=== PATIENT | female | born 1970 | race Two or more races ===

== ENCOUNTER 2016-11-22 17:34 | Emergency (ER) | payer SELFPAY ==
[~2016-11-22] VITALS: Ht 160 cm; Wt 54.4 kg
[2016-11-22 17:52] VITALS: BP 115/55
[2016-11-22 19:07] LABS: OBC FLU VALID
[2016-11-22] MEDS ORDERED: PROAIR RESPICL90 MCG IH (20:03)
[2016-11-22] MEDS ORDERED: PRED50TA PO (20:03)
[2016-11-22] MEDS ORDERED: BENZ100C PO (20:03)
--- NOTE | 2016-11-22 20:03 | PHYS DOC ---
Past Medical History Past Medical History: GERD, Other Additional Past Medical Histor: "Idiopathic thrombocytopenic prurpura" Past Surgical History: Cholecystectomy, Oophorectomy, Splenectomy, Other Additional Past Surgical Histo: L ovary Additional Information: 2 CIGARETTES A DAY Alcohol Use: None Drug Use: None Adult General Chief Complaint Chief Complaint: COUGH HPI HPI Patient is a 46 year old female with history of acid reflex who presents today with a productive cough and body aches. Patient states she's had a cough for 1 week and body aches for 2 days. Patient denies any fever. Patient states she would like a note for work. She states she is a smoker. Review of Systems Review of Systems Constitutional: body aches Eyes: Denies change in visual acuity, redness, or eye pain [] HENT: Denies nasal congestion or sore throat [] Respiratory:cough Cardiovascular: No additional information not addressed in HPI [] GI: Denies abdominal pain, nausea, vomiting, bloody stools or diarrhea [] : Denies dysuria or hematuria [] Musculoskeletal: Denies back pain or joint pain [] Integument: Denies rash or skin lesions [] Neurologic: Denies headache, focal weakness or sensory changes [] Endocrine: Denies polyuria or polydipsia [] Allergies Allergies Allergies Coded Allergies Type Severity Reaction Last Updated Verified No Known Drug Allergies 08/31/14 No Physical Exam Physical Exam Constitutional: Well developed, well nourished, no acute distress, non-toxic appearance. [] HENT: Normocephalic, atraumatic, bilateral external ears normal, oropharynx moist, no oral exudates, nose normal. [] Eyes: PERRLA, EOMI, conjunctiva normal, no discharge. [] Neck: Normal range of motion, no tenderness, supple, no stridor. [] Cardiovascular:Heart rate regular rhythm, no murmur [] Lungs & Thorax: Bilateral breath sounds clear to auscultation [] Abdomen: Bowel sounds normal, soft, no tenderness, no masses, no pulsatile masses. [] Skin: Warm, dry, no erythema, no rash. [] Back: No tenderness, no CVA tenderness. [] Extremities: No tenderness, no cyanosis, no clubbing, ROM intact, no edema. [] Neurologic: Alert and oriented X 3, normal motor function, normal sensory function, no focal deficits noted. [] Psychologic: Affect normal, judgement normal, mood normal. [] Current Patient Data Vital Signs Vital Signs Date Time Temp Pulse Resp B/P Pulse Ox O2 Delivery O2 Flow Rate FiO2 11/22/16 17:52 98.2 75 20 115/55 100 Room Air 98.2 Lab Values Laboratory Tests Test 11/22/16 18:42 Influenza Type A Antigen Negative (NEGATIVE) Influenza Type B Antigen Negative (NEGATIVE) EKG EKG [] Radiology/Procedures Radiology/Procedures [] Course & Med Decision Making Course & Med Decision Making Pertinent Labs and Imaging studies reviewed. (See chart for details) This is a 46 year old female patient with history of smoking who presents today with a productive cough and body aches. Chest x-ray interpreted by Dr. Huang is negative for any acute findings. Negative for influenza. Patient's symptoms are consistent with viral bronchitis. She was encouraged to consider smoking cessation. She was provided prescription for albuterol and Tessalon Perles and prednisone. She is to follow-up with her own PCP. She was provided return precautions and discharged in stable condition. Dragon Disclaimer Dragon Disclaimer This electronic medical record was generated, in whole or in part, using a voice recognition dictation system. Departure Departure Impression: Primary Impression: Acute bronchitis Additional Impressions: Body aches Smoking addiction Disposition: 01 HOME, SELF-CARE Condition: STABLE Referrals: NO PCP (PCP) Follow-up with your own doctor in one week Patient Instructions: Acute Bronchitis, [id number] Additional Instructions: You were seen with symptoms consistent with acute viral bronchitis. Consider smoking cessation. Follow-up with your doctor in one week. Come back to the ED if symptoms worsen. Scripts Prednisone 50 Mg Tablet1 Tab PO DAILY #5 TAB Prov:BRONSON LOVE APRN 11/22/16 Benzonatate (Tessalon Perle)100 Mg Capsule1 Cap PO TID #21 CAP Prov:BRONSON LOVE APRN 11/22/16 Albuterol Sulfate (Proair Respiclick)90 Mcg Aer.pow.ba1 Puff IH PRN Q6HRS PRN SHORTNESS OF BREATH #1 INHALER Prov:BRONSON LOVE ADMINISTRATIVE OFFICE SPECIALIST 11/22/16 Problem Qualifiers Primary Impression: Acute bronchitis Bronchitis organism: unspecified organism Qualified Code: J20.9 - Acute bronchitis, unspecified BRONSON LOVE APRN Nov 22, 2016 20:03
--- NOTE | 2016-11-23 08:39 | RAD ---
Indication flulike symptoms for 2 days. PA and lateral views of the chest were obtained. Comparison is made to a study 08/14/2012. There are suspect background changes of emphysema or fibrosis. There is mild hyperexpansion. The heart and pulmonary vessels appear normal. There is no consolidated pneumonia significant pleural fluid collection or pneumothorax. IMPRESSION: No acute or focal process is seen in the chest
== END 2016-11-22 20:18 | disposition home or self-care (01) ==
LOC: ER 17:34
DX: J20.9 Acute bronchitis, unspecified (principal); M79.1 Myalgia; K21.9 Gastro-esophageal reflux disease without esophagitis; F17.210 Nicotine dependence, cigarettes, uncomplicated; Z90.81 Acquired absence of spleen; Z90.49 Acquired absence of other specified parts of digestive tract; Z90.721 Acquired absence of ovaries, unilateral
CPT/HCPCS: 71020; 87804; 99285-25

== ENCOUNTER → 2018-04-21 | Outpatient (CLI) | payer BC ==
[~2018-04-21] MED LIST: BENZ100C PO; PRED50TA PO; PROAIR RESPICL90 MCG IH
--- NOTE | 2018-04-21 12:51 | RAD ---
MR of the right foot HISTORY: Medial sesamoid pain for 3 or 4 months, avascular necrosis. TECHNIQUE: Routine multiplanar sequences are obtained. FINDINGS: The mammary osteoarthritis at the articulation of the first metatarsal head with the hallux sesamoids. The sesamoids are subluxed laterally. These sesamoids demonstrate intact marrow signal without edema or sclerosis. Bifid morphology of the medial hallux sesamoid. Degenerative changes at the first MTP joint. Hallux valgus. No bone marrow edema or acute fracture. No abnormal soft tissue fluid collection or edema. The visualized tendons are intact. Lisfranc ligament complex is intact as is tarsometatarsal alignment. IMPRESSION: 1. Degenerative changes at the first MTP joint with hallux valgus. 2. Lateral subluxation of the hallux sesamoids with degenerative change. No evidence of acute sesamoiditis. Bifid morphology of the medial hallux sesamoid likely developmental. No other intrinsic sesamoid bone pathology. Electronically signed by: Moncho Arriaza MD (04/21/2018 12:47 PM) [facility]
== END | disposition home or self-care (01) ==
LOC: MRI 10:18
PROVIDERS: ATTEND Podiatrist Foot & Ankle Surgery
DX: S93.311A Subluxation of tarsal joint of right foot, initial encounter (principal); M19.071 Primary osteoarthritis, right ankle and foot; M20.11 Hallux valgus (acquired), right foot; K21.9 Gastro-esophageal reflux disease without esophagitis; Z90.49 Acquired absence of other specified parts of digestive tract; Z90.81 Acquired absence of spleen; Z90.721 Acquired absence of ovaries, unilateral; Z87.891 Personal history of nicotine dependence; X58.XXXA Exposure to other specified factors, initial encounter; Y93.89 Activity, other specified; Y92.89 Other specified places as the place of occurrence of the external cause; Y99.8 Other external cause status
CPT/HCPCS: 73718

== ENCOUNTER → 2018-07-08 | Outpatient (CLI) | payer BC ==
--- NOTE | 2018-07-08 10:31 | RAD ---
Examination: CT maxillofacial without contrast HISTORY: History of chronic sinusitis COMPARISON: None available technique: Axial CT images of the maxillofacial bones were performed without contrast. Coronal and sagittal reformats are performed Exposure: One or more of the following individualized dose reduction techniques were utilized for this examination: 1. Automated exposure control 2. Adjustment of the mA and/or kV according to patient size 3. Use of iterative reconstruction technique FINDINGS: No opacification or air-fluid levels are identified within the paranasal sinuses. Mild rightward deviation of nasal septum.. No bony abnormality. The bilateral orbital globes appear intact. Retro-orbital fat is maintained. The mastoid air cells are clear IMPRESSION: No evidence of sinus disease. Electronically signed by: Nickolas Rivas MD (07/08/2018 10:28 AM) [place] [id number]
== END | disposition home or self-care (01) ==
LOC: CT 13:50
PROVIDERS: ATTEND Family Medicine
DX: J32.0 Chronic maxillary sinusitis (principal); J34.2 Deviated nasal septum
CPT/HCPCS: 70486

== ENCOUNTER → 2018-07-29 | Day surgery (SDC) | payer BC ==
[~2018-07-29] MED LIST changes: +IV RINGERS,LACTATED 1000ML 1,000 ML IV SCH; +PROPOFOL 20 ML IV ONE
[2018-07-29 08:17] VITALS: BP 99/61
== END | disposition home or self-care (01) ==
LOC: ENDOS 06:29
PROVIDERS: ATTEND Internal Medicine Gastroenterology
DX: K64.0 First degree hemorrhoids (principal); I10 Essential (primary) hypertension; Z90.49 Acquired absence of other specified parts of digestive tract; Z90.721 Acquired absence of ovaries, unilateral; Z90.81 Acquired absence of spleen; M79.7 Fibromyalgia; Z79.2 Long term (current) use of antibiotics; Z80.0 Family history of malignant neoplasm of digestive organs; Z83.3 Family history of diabetes mellitus; F17.210 Nicotine dependence, cigarettes, uncomplicated; Z72.89 Other problems related to lifestyle
CPT/HCPCS: 45378; J2704

== ENCOUNTER → 2019-01-08 | Outpatient (CLI) | payer BC ==
[2018-07-29 08:17] VITALS: BP 99/61
[~2019-01-08] MED LIST changes: -IV RINGERS,LACTATED 1000ML 1,000 ML IV SCH; -PROPOFOL 20 ML IV ONE
--- NOTE | 2019-01-08 11:00 | RAD ---
Small bowel series, 01/08/2019: History: Abdominal pain The preliminary abdominal image demonstrates a nonspecific gas pattern. There is no evidence of organomegaly. Serial digital images were obtained following oral ingestion of liquid barium. 0.4 minutes of fluoroscopy time was also utilized with 3 fluoroscopic spot images recorded. The small bowel loops are of normal caliber with no evidence of thickening of their folds. There is normal transit of the barium through the small bowel into the colon. The terminal ileum is unremarkable. IMPRESSION: No significant small bowel abnormality is detected.
== END | disposition home or self-care (01) ==
LOC: RAD 08:59
PROVIDERS: ATTEND Internal Medicine Gastroenterology
DX: R10.9 Unspecified abdominal pain (principal); R19.7 Diarrhea, unspecified
CPT/HCPCS: 74250

== ENCOUNTER 2019-06-28 11:57 | Inpatient (IN) | payer BC ==
[~2019-06-28] VITALS: Ht 154.9 cm; Wt 53.1 kg
[2019-06-28] MEDS ORDERED: IV NORMAL SALINE 1000ML BAG 1,000 ML IV SCH (13:21)
[2019-06-28] MEDS ORDERED: cefTRIAXone IV Push 1 GM VIAL. IVP ONE (13:30)
[2019-06-28] MEDS ORDERED: VANCOMYCIN 1GM IVPB FOR OMNI 250 ML IV ONE (13:30)
--- NOTE | 2019-06-28 13:32 | PHYS DOC ---
Past Medical History Past Medical History: Arthritis, Fibromyalgia, GERD, Other Additional Past Medical Histor: "Idiopathic thrombocytopenic prurpura", IBS, COLITIS Past Surgical History: Cholecystectomy, Oophorectomy, Splenectomy, Other Additional Past Surgical Histo: L ovary Alcohol Use: None Drug Use: None Adult General Chief Complaint Chief Complaint: cellulitis HPI HPI Patient is a 49 year old female with history of ITP and colitis who presents with complaining of facial cellulitis. Patient states she has had nose edema and erythema and pain for 4 days and seen at [facility] emergency room and treated with without improvement of her condition and the size of nose getting almost the size of her usual. Patient states she usually needs IV antibiotic treatment with infection because of platelet count of 60,000 and her primary care physician suggested she is coming to ER for hospitalization. She denies fever, dizziness, focal neuro deficit, nasal bleeding, nausea and vomiting. Patient states she was treated for colitis on June 07 with improvement of her sympt oms. Review of Systems Review of Systems Constitutional: Denies fever or chills [] Eyes: Denies change in visual acuity, redness, or eye pain [] HENT: Denies nasal congestion or sore throat [] Respiratory: Denies cough or shortness of breath [] Cardiovascular: No additional information not addressed in HPI [] GI: Denies abdominal pain, nausea, vomiting, bloody stools or diarrhea [] : Denies dysuria or hematuria [] Musculoskeletal: Denies back pain or joint pain [] Integument: Denies rash, reports skin lesions [] Neurologic: Denies headache, focal weakness or sensory changes [] Endocrine: Denies polyuria or polydipsia [] All other systems were reviewed and found to be within normal limits, except as documented in this note. Current Medications Current Medications Current Medications Medications (Trade) Dose Ordered Sig/Troy Start Time Stop Time Status Last Admin Dose Admin Sodium Chloride 1,000 ml @ 1,000 mls/hr Q1H 06/28/19 13:21 06/28/19 14:20 DC 06/28/19 14:16 1,000 MLS/HR Allergies Allergies Allergies Coded Allergies Type Severity Reaction Last Updated Verified No Known Drug Allergies 08/31/14 No Physical Exam Physical Exam Constitutional: Well developed, well nourished, mild distress, non-toxic appearance. [] HENT: Normocephalic, atraumatic, edema and erythema and tenderness of tip of nose. Eyes: PERRLA, EOMI, conjunctiva normal, no discharge. [] Neck: Normal range of motion, no tenderness, supple, no stridor. [] Cardiovascular:Heart rate regular rhythm, no murmur [] Lungs & Thorax: Bilateral breath sounds clear to auscultation [] Abdomen: Bowel sounds normal, soft, no tenderness, no masses, no pulsatile masses. [] Skin: Warm, dry, no erythema, no rash. [] Back: No tenderness, no CVA tenderness. [] Extremities: No tenderness, no cyanosis, no clubbing, ROM intact, no edema. [] Neurologic: Alert and oriented X 3, no focal deficits noted. [] Psychologic: Affect normal, judgement normal, mood normal. [] Current Patient Data Vital Signs Vital Signs Date Time Temp Pulse Resp B/P (MAP) Pulse Ox O2 Delivery O2 Flow Rate FiO2 06/28/19 13:09 98.3 74 20 111/54 (73) 100 Room Air 98.3 Lab Values Laboratory Tests Test 06/28/19 12:50 White Blood Count 9.2 x10^3/uL (4.0-11.0) Red Blood Count 4.30 x10^6/uL (3.50-5.40) Hemoglobin 13.7 g/dL (12.0-15.5) Hematocrit 40.3 % (36.0-47.0) Mean Corpuscular Volume 94 fL (79-100) Mean Corpuscular Hemoglobin 32 pg (25-35) Mean Corpuscular Hemoglobin Concent 34 g/dL (31-37) Red Cell Distribution Width 15.2 % (11.5-14.5) H Platelet Count 91 x10^3/uL (140-400) L Neutrophils (%) (Auto) 67 % (31-73) Lymphocytes (%) (Auto) 22 % (24-48) L Monocytes (%) (Auto) 10 % (0-9) H Eosinophils (%) (Auto) 1 % (0-3) Basophils (%) (Auto) 1 % (0-3) Neutrophils # (Auto) 6.1 x10^3/uL (1.8-7.7) Lymphocytes # (Auto) 2.1 x10^3/uL (1.0-4.8) Monocytes # (Auto) 0.9 x10^3/uL (0.0-1.1) Eosinophils # (Auto) 0.1 x10^3/uL (0.0-0.7) Basophils # (Auto) 0.1 x10^3/uL (0.0-0.2) Prothrombin Time 14.5 SEC (11.7-14.0) H Prothrombin Time INR 1.2 (0.8-1.1) H Sodium Level 140 mmol/L (136-145) Potassium Level 4.0 mmol/L (3.5-5.1) Chloride Level 103 mmol/L (98-107) Carbon Dioxide Level 30 mmol/L (21-32) Anion Gap 7 (6-14) Blood Urea Nitrogen 10 mg/dL (7-20) Creatinine 0.7 mg/dL (0.6-1.0) Estimated GFR (Cockcroft-Gault) 88.6 BUN/Creatinine Ratio 14 (6-20) Glucose Level 96 mg/dL (70-99) Lactic Acid Level 1.1 mmol/L (0.4-2.0) Calcium Level 8.5 mg/dL (8.5-10.1) Total Bilirubin 0.3 mg/dL (0.2-1.0) Aspartate Amino Transferase (AST) 25 U/L (15-37) Alanine Aminotransferase (ALT) 31 U/L (14-59) Alkaline Phosphatase 110 U/L (46-116) Total Protein 7.4 g/dL (6.4-8.2) Albumin 3.5 g/dL (3.4-5.0) Albumin/Globulin Ratio 0.9 (1.0-1.7) L Laboratory Tests 06/28/19 12:50 Laboratory Tests 06/28/19 12:50 EKG EKG [] Radiology/Procedures Radiology/Procedures [facility] [address] [place] [address] IMAGING REPORT Signed PATIENT: MIGUELITO BARBOSA ACCOUNT: [id number] : 1970 LOCATION: ER AGE: 49 SEX: F EXAM STATUS: REG ER ORD. PHYSICIAN: FLORI UNGER MD REASON: facial cellulitis PROCEDURE: CHEST PA & LATERAL CHEST PA LATERAL Clinical indications: Facial cellulitis. COMPARISON: November 22, 2016. Findings: No acute lung infiltrate or pleural effusion or pulmonary edema or lung mass or pneumothorax is seen. The heart size, pulmonary vasculature, mediastinum and both rayna are unremarkable. The osseous structures appear intact. Impression: No acute radiographic abnormality is seen. Electronically signed by: River Cohen MD (06/28/2019 1:50 PM) [facility] DICTATED and SIGNED BY: RIVER COHEN MD DATE: 06/28/19 1350 Course & Med Decision Making Course & Med Decision Making Pertinent Labs and Imaging studies reviewed. (See chart for details) Evaluation of patient in ER showed 49-year-old female patient with history of ITP and thrombocytopenia and complaining of facial cellulitis that getting admitted with outpatient treatment with Bactrim. Patient had blood pressure of 90s without tachycardia or fever or elevation of lactic acid.patient treated with IV fluid and Rocephin and vancomycin. Patient requiring admission for further evaluation and treatment. Discussed with Dr. Jerez who is in agreement with admission. Discussed findings and plan with patient and family, who acknowledge understanding and agreement. Dragon Disclaimer Dragon Disclaimer This electronic medical record was generated, in whole or in part, using a voice recognition dictation system. Departure Departure Impression: Primary Impression: Facial cellulitis Additional Impressions: Thrombocytopenia Hypotension History of ITP Disposition: 09 ADMITTED INPATIENT (at 1400) Admitting Physician: Yue Jerez (accepted admission at 1359) Referrals: MYRTLE DESIR MD (PCP) Problem Qualifiers Additional Impressions: Hypotension Hypotension type: unspecified hypotension type Qualified Codes: I95.9 - Hypotension, unspecified FLORI UNGER MD Jun 28, 2019 13:32
[2019-06-28 13:36] LABS: BASO # 0.1 x10^3/uL (0.0-0.2); BASO % 1 % (0-3); EOS # 0.1 x10^3/uL (0.0-0.7); EOS % 1 % (0-3); HEMATOCRIT 40.3 % (36.0-47.0); HEMOGLOBIN 13.7 g/dL (12.0-15.5); LYMPH # 2.1 x10^3/uL (1.0-4.8); LYMPH % 22 % (24-48); MEAN CORPUSCULAR HEMOGLOBIN 32 pg (25-35); MEAN CORPUSCULAR HGB CONC 34 g/dL (31-37); MEAN CORPUSCULAR VOLUME 94 fL (79-100); MONO # 0.9 x10^3/uL (0.0-1.1); MONO % 10 % (0-9); NEUT # 6.1 x10^3/uL (1.8-7.7); NEUT % 67 % (31-73); PLATELET COUNT 91 x10^3/uL (140-400); RED CELL DISTRIBUTION WIDTH 15.2 % (11.5-14.5); WHITE BLOOD COUNT 9.2 x10^3/uL (4.0-11.0)
[2019-06-28 13:45] LABS: PROTHROMBIN TIME PATIENT 14.5 SEC (11.7-14.0)
[2019-06-28 13:49] LABS: CALCIUM 8.5 mg/dL (8.5-10.1); CREATININE 0.7 mg/dL (0.6-1.0); GFR 88.6
--- NOTE | 2019-06-28 13:53 | RAD ---
CHEST PA LATERAL Clinical indications: Facial cellulitis. COMPARISON: November 22, 2016. Findings: No acute lung infiltrate or pleural effusion or pulmonary edema or lung mass or pneumothorax is seen. The heart size, pulmonary vasculature, mediastinum and both rayna are unremarkable. The osseous structures appear intact. Impression: No acute radiographic abnormality is seen. Electronically signed by: Jose Alfredo Cohen MD (06/28/2019 1:50 PM) [facility]
[2019-06-28 13:54] LABS: ALBUMIN 3.5 g/dL (3.4-5.0); ALBUMIN/GLOBULIN RATIO 0.9 (1.0-1.7); TOTAL BILIRUBIN 0.3 mg/dL (0.2-1.0); TOTAL PROTEIN 7.4 g/dL (6.4-8.2)
[2019-06-28 15:00] VITALS: BP 110/63
[2019-06-28] MEDS ORDERED: ONDA4TAB7 PO (15:13)
[2019-06-28] MEDS ORDERED: RIFA550T4 PO (15:13)
[2019-06-28] MEDS ORDERED: HYDR-2759 PO (15:13)
[2019-06-28] MEDS ORDERED: MECL25TA3 PO (15:13)
[2019-06-28] MEDS ORDERED: DICY20TA3 PO (15:13)
[2019-06-28] MEDS ORDERED: MECLIZINE HCL 12.5 MG TABLET. PO PRN (16:45)
[2019-06-28 19:00] VITALS: BP 92/48
[2019-06-28] MEDS: rifAXIMin 550 MG TABLET PO SCH (20:30)
[2019-06-28] MEDS: HYDROcodone/APAP 5/325MG 1 TAB TABLET PO PRN (20:34)
[2019-06-28 23:00] VITALS: BP 96/48
[2019-06-29 02:31] VITALS: BP 97/43
[2019-06-29] MEDS: ONDANSETRON ODT 4 MG TAB.RAPDIS. PO PRN (05:43)
[2019-06-29 06:32] VITALS: BP 117/63
[2019-06-29] MEDS: rifAXIMin 550 MG TABLET PO SCH ×2 (08:16→21:33)
[2019-06-29] MEDS: HYDROcodone/APAP 5/325MG 1 TAB TABLET PO PRN ×3 (08:16→21:33)
--- NOTE | 2019-06-29 09:46 | PDOC ---
Infectious Disease Note Vital Sign Vital Signs Vital Signs Date Time Temp Pulse Resp B/P (MAP) Pulse Ox O2 Delivery O2 Flow Rate FiO2 06/29/19 08:16 Room Air 06/29/19 06:32 98.6 82 16 117/63 (81) 95 98.6 Labs Lab Laboratory Tests Test 06/28/19 12:50 White Blood Count 9.2 x10^3/uL (4.0-11.0) Red Blood Count 4.30 x10^6/uL (3.50-5.40) Hemoglobin 13.7 g/dL (12.0-15.5) Hematocrit 40.3 % (36.0-47.0) Mean Corpuscular Volume 94 fL (79-100) Mean Corpuscular Hemoglobin 32 pg (25-35) Mean Corpuscular Hemoglobin Concent 34 g/dL (31-37) Red Cell Distribution Width 15.2 % (11.5-14.5) Platelet Count 91 x10^3/uL (140-400) Neutrophils (%) (Auto) 67 % (31-73) Lymphocytes (%) (Auto) 22 % (24-48) Monocytes (%) (Auto) 10 % (0-9) Eosinophils (%) (Auto) 1 % (0-3) Basophils (%) (Auto) 1 % (0-3) Neutrophils # (Auto) 6.1 x10^3/uL (1.8-7.7) Lymphocytes # (Auto) 2.1 x10^3/uL (1.0-4.8) Monocytes # (Auto) 0.9 x10^3/uL (0.0-1.1) Eosinophils # (Auto) 0.1 x10^3/uL (0.0-0.7) Basophils # (Auto) 0.1 x10^3/uL (0.0-0.2) Prothrombin Time 14.5 SEC (11.7-14.0) Prothromb Time International Ratio 1.2 (0.8-1.1) Sodium Level 140 mmol/L (136-145) Potassium Level 4.0 mmol/L (3.5-5.1) Chloride Level 103 mmol/L (98-107) Carbon Dioxide Level 30 mmol/L (21-32) Anion Gap 7 (6-14) Blood Urea Nitrogen 10 mg/dL (7-20) Creatinine 0.7 mg/dL (0.6-1.0) Estimated GFR (Cockcroft-Gault) 88.6 BUN/Creatinine Ratio 14 (6-20) Glucose Level 96 mg/dL (70-99) Lactic Acid Level 1.1 mmol/L (0.4-2.0) Calcium Level 8.5 mg/dL (8.5-10.1) Total Bilirubin 0.3 mg/dL (0.2-1.0) Aspartate Amino Transf (AST/SGOT) 25 U/L (15-37) Alanine Aminotransferase (ALT/SGPT) 31 U/L (14-59) Alkaline Phosphatase 110 U/L (46-116) Total Protein 7.4 g/dL (6.4-8.2) Albumin 3.5 g/dL (3.4-5.0) Albumin/Globulin Ratio 0.9 (1.0-1.7) Objective Assessment Nasal abscess H/o Splenectomy ITP IBS Plan Plan of Care CT maxillofacial with contrast Change to Dapto and cont Rocephin BMP in am cults collected May need transfer if needs surgical I and D D/w nursing Thank you # [phone] HELEN CRANE MD Jun 29, 2019 09:46
[2019-06-29] MEDS ORDERED: IOHEXOL 300 MG/ML 100ML VIAL. IV ONE (10:00)
[2019-06-29] MEDS ORDERED: CONTRAST GIVEN. MC PRN (10:15)
--- NOTE | 2019-06-29 10:22 | CONS ---
DATE OF CONSULTATION: 06/29/2019 INFECTIOUS DISEASE CONSULTATION LOCATION: The patient is in room 565. REQUESTING PHYSICIAN: Dr. Jerez. REASON FOR CONSULTATION: Nasal abscess. HISTORY OF PRESENT ILLNESS: The patient is a pleasant 49-year-old female with a history of ITP and splenectomy, recently underwent right foot bunionectomy back in April and has slowly been healing. States about a few weeks ago, she was seen in secondary to colitis. She was given 8 pills of medication, she does not remember what it was and took it and her colitis had resolved. Last Friday, she awakened and noticed some tenderness in her nose. I thought she may have had ingrown hair. On Friday, her nose became more inflamed and she went to [facility], was complaining of sinus discomfort as well as nasal swelling and was prescribed Bactrim. She began taking the Bactrim. Despite this, her swelling worsened. She then presented to [facility] on the . She was not having any fevers or chills. She was having a little sinus congestion. No gross drainage from the sinus area. No problems with her ears. No sore throat or cough. No chest pain. No dysuria, frequency, or urgency. Her bowels have improved. Denies any trauma or rashes. She underwent a chest x-ray, which showed no acute abnormality, was given a dose of vancomycin and Rocephin and admitted to the hospital. Currently, the patient is in her room. She was in her bathroom, but she ambulated back to the bed without complications. This morning, her nasal area began to drain purulent material and a culture has been obtained. PAST MEDICAL HISTORY: Positive for previous right lower extremity cellulitis, bunions, arthritis, fibromyalgia, gastroesophageal reflux disease, ITP, IBS with colitis. PAST SURGICAL HISTORY: Positive for cholecystectomy, left oophorectomy, splenectomy and right foot surgery as mentioned above. REVIEW OF SYSTEMS: Otherwise negative except for what is mentioned above. ALLERGIES: No known drug allergies. SOCIAL HISTORY: No gross alcohol abuse. FAMILY HISTORY: Noncontributory. CURRENT MEDICATIONS: Include vancomycin, Rocephin x 1. In addition, she is on Bentyl, Antivert and rifaximin. PHYSICAL EXAMINATION: VITAL SIGNS: She is afebrile, temperature 98.6, pulse 82, respirations 16, blood pressure 117/63, satting 93% on room air. CONSTITUTIONAL: She is cooperative. She is in no acute distress. HEENT: Pupils equal and reactive with normal conjunctivae. Oral cavity, pharynx is dry. She has dentures. NECK: Supple. Good range of motion, no JVD. LUNGS: Clear to auscultation. HEART: S1, S2. ABDOMEN: Soft, nontender, nondistended with positive bowel sounds. EXTREMITIES: Without clubbing, cyanosis. Her right foot has well healing scars. No signs of any erythema or warmth. Her tip of the nose has positive erythema. There is also edema associated with it is tender. On the inside of her left naris, there is a small area of drainage. She has some mild sinus tenderness, but no gross inflammation about her eyes. PSYCHIATRIC: Affect is appropriate. NEUROLOGIC: She is nonfocal. LABORATORY DATA: White count was 9.2, hemoglobin 13.7, platelets of 91. Glucose was 96. Creatinine 0.7. Normal liver function study tests. Chest x-ray reviewed in history of present illness. IMPRESSION: 1. Nasal abscess. 2. History of splenectomy. 3. Immune thrombocytopenic purpura. 4. Irritable bowel syndrome. RECOMMENDATIONS: We will obtain a CT scan maxillofacial area with contrast to rule out a deeper abscess. We will discontinue the vancomycin with administration of contrast. We will give the daptomycin. Also, continue Rocephin. Obtain a BMP in the morning. Cultures will be collected. If she does have a deeper abscess that needs some surgical intervention, she may need to be transferred to a facility that has either ENT or plastics. This was discussed with Dr. Jerez. Discussed with nursing. Thank you for asking to participate in the patient's care. If you have any questions, please do not hesitate to contact me. HELEN CRANE MD DR: KEENAN/luís JOB#: [id number] / [id number] ARELY
[2019-06-29 11:00] VITALS: BP 104/60
[2019-06-29] MEDS: DAPTOmycin (GENERIC) IVPB 320 MG in IV NORMAL SALINE 50ML 50 ML IV SCH (11:12)
[2019-06-29] MEDS: cefTRIAXone IV Push 1 GM VIAL. IVP SCH (11:12)
--- NOTE | 2019-06-29 12:09 | PDOC1 ---
History and Physical Date of Admission Date of Admission 06/28/19 Identification/Chief Complaint Chief Complaint pain and redness of nose, concerned for abscess Source Source: Patient History of Present Illness History of Present Illness She went to [facility] ER over the weekend for a red swollen nose and was started on antibiotics but called the office yesterday stating it was worsening and sent to ER and evaluated and admitted on IV antibiotics for a nasal abscess which this am has started to spontaneously drain from the septal portion of her left nostril, she denies fever, chills or night sweats. She denies trauma to her nose. She has not had any nose bleeding, she has a hx of ITP and was recently in the office with IBS complaints with diarrhea and started on Xifaxin and recently was also on oral antibiotics for colitis (?diverticulitis) also per CT imaging from another ER visit Past Medical History Cardiovascular: No pertinent hx Pulmonary: No pertinent hx GI: GERD, Irritable bowel disease Heme/Onc: Other (ITP) Hepatobiliary: No pertinent hx Rheumatologic: Other (she has been seeing ortho for right foot pain and had surgery and recently out of [facility] boot) ENT: Sincusitis Renal/: No pertinent hx Endocrine: No pertinent hx Dermatology: No pertinent hx Past Surgical History Past Surgical History: Cholecystectomy, Other (splenectomy, left oopherectomy) Family History Family History: Parent (mother due to sepsis, father due to brain tumor, stomach cancer, 1 brother due to cirrhosis) Social History Smoke: <1 pack per day Drugs: Marijuana Current Problem List Problem List Problems Medical Problems: (1) History of ITP Status: Acute (2) Hypotension Status: Acute (3) Thrombocytopenia Status: Acute Current Medications Current Medications Current Medications Medications (Trade) Dose Ordered Sig/Troy Start Time Stop Time Status Last Admin Dose Admin Acetaminophen/ Hydrocodone Bitart (Lortab 5/325) 1 tab PRN BID PRN 06/28/19 16:30 06/29/19 08:16 1 TAB Ceftriaxone Sodium (Rocephin) 1 gm Q24H 06/29/19 09:45 06/29/19 11:12 1 GM Daptomycin 320 mg/ Sodium Chloride 50 ml @ 100 mls/hr Q24H 06/29/19 11:00 06/29/19 11:12 100 MLS/HR Dicyclomine HCl (Bentyl) 20 mg PRN Q6HRS PRN 06/28/19 16:45 Info (CONTRAST GIVEN -- Rx MONITORING) 1 each PRN DAILY PRN 06/29/19 10:15 07/01/19 10:14 Iohexol (Omnipaque 300 Mg/ml) 70 ml 1X ONCE 06/29/19 10:00 06/29/19 10:02 DC 06/29/19 10:00 70 ML Meclizine HCl (Antivert) 25 mg PRN Q6HRS PRN 06/28/19 16:45 Ondansetron HCl (Zofran Odt) 4 mg PRN Q8HRS PRN 06/28/19 16:45 06/29/19 05:43 4 MG Rifaximin (Xifaxan) 550 mg BID 06/28/19 21:00 06/29/19 08:16 550 MG Sodium Chloride 1,000 ml @ 1,000 mls/hr Q1H 06/28/19 13:21 06/28/19 14:20 DC 06/28/19 14:16 1,000 MLS/HR Vancomycin HCl 250 ml @ 250 mls/hr 1X ONCE 06/28/19 13:30 06/28/19 14:29 DC Allergies Allergies Allergies Coded Allergies Type Severity Reaction Last Updated Verified No Known Drug Allergies 08/31/14 No ROS Review of System CONSTITUTIONAL: No fever or chills EYES: No recent changes SKIN: nasal redness and swelling CARDIOVASCULAR: No chest pain, syncope, palpitations, or edema RESPIRATORY: No SOB or cough GASTROINTESTINAL: No nausea, vomiting or abdominal pain NEUROLOGICAL: No headaches or weakness ENDOCRINE: No cold or heat intolerance GENITOURINARY: No urgency or frequency of urination MUSCULOSKELETAL: No back pain or joint pain LYMPHATICS: No enlarged lymph nodes PSYCHIATRIC: No anxiety or depression Physical Exam Physical Exam GEN.: No apparent distress. Alert and oriented. HEENT: Head is normocephalic, atraumatic, nose is red, swollen and just started spontaneously draining from septal area NECK: Supple. LUNGS: Clear to auscultation. HEART: RRR, S1, S2 present. Peripheral pulses intact ABDOMEN: Soft, nontender. Positive bowel sounds. EXTREMITIES: Without any cyanosis. NEUROLOGIC: Normal speech, normal tone PSYCHIATRIC: Normal affect, normal mood. SKIN: No ulcerations Vitals Vitals Vital Signs Date Time Temp Pulse Resp B/P (MAP) Pulse Ox O2 Delivery O2 Flow Rate FiO2 06/29/19 09:30 Room Air 06/29/19 06:32 98.6 82 16 117/63 (81) 95 98.6 Labs Labs Laboratory Tests Test 06/28/19 12:50 White Blood Count 9.2 x10^3/uL (4.0-11.0) Red Blood Count 4.30 x10^6/uL (3.50-5.40) Hemoglobin 13.7 g/dL (12.0-15.5) Hematocrit 40.3 % (36.0-47.0) Mean Corpuscular Volume 94 fL (79-100) Mean Corpuscular Hemoglobin 32 pg (25-35) Mean Corpuscular Hemoglobin Concent 34 g/dL (31-37) Red Cell Distribution Width 15.2 % (11.5-14.5) Platelet Count 91 x10^3/uL (140-400) Neutrophils (%) (Auto) 67 % (31-73) Lymphocytes (%) (Auto) 22 % (24-48) Monocytes (%) (Auto) 10 % (0-9) Eosinophils (%) (Auto) 1 % (0-3) Basophils (%) (Auto) 1 % (0-3) Neutrophils # (Auto) 6.1 x10^3/uL (1.8-7.7) Lymphocytes # (Auto) 2.1 x10^3/uL (1.0-4.8) Monocytes # (Auto) 0.9 x10^3/uL (0.0-1.1) Eosinophils # (Auto) 0.1 x10^3/uL (0.0-0.7) Basophils # (Auto) 0.1 x10^3/uL (0.0-0.2) Prothrombin Time 14.5 SEC (11.7-14.0) Prothromb Time International Ratio 1.2 (0.8-1.1) Sodium Level 140 mmol/L (136-145) Potassium Level 4.0 mmol/L (3.5-5.1) Chloride Level 103 mmol/L (98-107) Carbon Dioxide Level 30 mmol/L (21-32) Anion Gap 7 (6-14) Blood Urea Nitrogen 10 mg/dL (7-20) Creatinine 0.7 mg/dL (0.6-1.0) Estimated GFR (Cockcroft-Gault) 88.6 BUN/Creatinine Ratio 14 (6-20) Glucose Level 96 mg/dL (70-99) Lactic Acid Level 1.1 mmol/L (0.4-2.0) Calcium Level 8.5 mg/dL (8.5-10.1) Total Bilirubin 0.3 mg/dL (0.2-1.0) Aspartate Amino Transf (AST/SGOT) 25 U/L (15-37) Alanine Aminotransferase (ALT/SGPT) 31 U/L (14-59) Alkaline Phosphatase 110 U/L (46-116) Total Protein 7.4 g/dL (6.4-8.2) Albumin 3.5 g/dL (3.4-5.0) Albumin/Globulin Ratio 0.9 (1.0-1.7) Laboratory Tests Test 06/28/19 12:50 White Blood Count 9.2 x10^3/uL (4.0-11.0) Red Blood Count 4.30 x10^6/uL (3.50-5.40) Hemoglobin 13.7 g/dL (12.0-15.5) Hematocrit 40.3 % (36.0-47.0) Mean Corpuscular Volume 94 fL (79-100) Mean Corpuscular Hemoglobin 32 pg (25-35) Mean Corpuscular Hemoglobin Concent 34 g/dL (31-37) Red Cell Distribution Width 15.2 % (11.5-14.5) Platelet Count 91 x10^3/uL (140-400) Neutrophils (%) (Auto) 67 % (31-73) Lymphocytes (%) (Auto) 22 % (24-48) Monocytes (%) (Auto) 10 % (0-9) Eosinophils (%) (Auto) 1 % (0-3) Basophils (%) (Auto) 1 % (0-3) Neutrophils # (Auto) 6.1 x10^3/uL (1.8-7.7) Lymphocytes # (Auto) 2.1 x10^3/uL (1.0-4.8) Monocytes # (Auto) 0.9 x10^3/uL (0.0-1.1) Eosinophils # (Auto) 0.1 x10^3/uL (0.0-0.7) Basophils # (Auto) 0.1 x10^3/uL (0.0-0.2) Prothrombin Time 14.5 SEC (11.7-14.0) Prothromb Time International Ratio 1.2 (0.8-1.1) Sodium Level 140 mmol/L (136-145) Potassium Level 4.0 mmol/L (3.5-5.1) Chloride Level 103 mmol/L (98-107) Carbon Dioxide Level 30 mmol/L (21-32) Anion Gap 7 (6-14) Blood Urea Nitrogen 10 mg/dL (7-20) Creatinine 0.7 mg/dL (0.6-1.0) Estimated GFR (Cockcroft-Gault) 88.6 BUN/Creatinine Ratio 14 (6-20) Glucose Level 96 mg/dL (70-99) Lactic Acid Level 1.1 mmol/L (0.4-2.0) Calcium Level 8.5 mg/dL (8.5-10.1) Total Bilirubin 0.3 mg/dL (0.2-1.0) Aspartate Amino Transf (AST/SGOT) 25 U/L (15-37) Alanine Aminotransferase (ALT/SGPT) 31 U/L (14-59) Alkaline Phosphatase 110 U/L (46-116) Total Protein 7.4 g/dL (6.4-8.2) Albumin 3.5 g/dL (3.4-5.0) Albumin/Globulin Ratio 0.9 (1.0-1.7) VTE Prophylaxis Ordered VTE Prophylaxis Devices: No VTE Pharmacological Prophylaxi: No Assessment/Plan Assessment/Plan nasal abscess - she received IV ceftriaxone and vanco in ER - she failed outpatient treatment with Bactrim DS, culture ordered, ID consult, may need imaging of nose, may need ENT services and possible transfer ITP with asplenia - adequate platelets per lab IBS - just started Xifaxin last week, tobacco use disorder Magno PENNY MD Jun 29, 2019 12:09
--- NOTE | 2019-06-29 12:33 | NUR ---
SW following for discharge planning. Discussed with RN, pt is from home with family. RN advised no SW needs at this time. SW will continue to follow should any discharge needs arise.
[2019-06-29 15:00] VITALS: BP 118/71
--- NOTE | 2019-06-29 15:52 | RAD ---
CT MAXILLOFACIAL W/CONTRAST History: Nasal abscess. sinus disease. Comparison: July 08, 2018. Technique: Noncontrast CT imaging was performed of the maxillofacial. Coronal and sagittal reconstructions were performed. Exposure: One or more of the following individualized dose reduction techniques were utilized for this examination: 1. Automated exposure control 2. Adjustment of the mA and/or kV according to patient size 3. Use of iterative reconstruction technique. Findings: Paranasal soft tissue swelling. Fluid collection within the left anterior nasal region measures 0.7 x 0.6 cm. No significant paranasal sinus mucosal thickening. No fluid levels. Infundibulum, frontal ethmoidal recesses and sphenoid ostia. Rightward nasal septal deviation and spurring. No acute maxillofacial fracture. Orbits are unremarkable. Mastoid air cells are clear. Imaged intracranial contents are unremarkable. Impression: 1. Left anterior nasal abscess with adjacent soft tissue swelling. 2. No significant sinus disease. Patent drainage pathways. Electronically signed by: Chidi Caputo DO (06/29/2019 3:49 PM) [facility]
[2019-06-29 19:00] VITALS: BP 101/37
[2019-06-29 23:00] VITALS: BP 98/43
[2019-06-30 03:00] VITALS: BP 102/48
[2019-06-30 04:17] LABS: CREATININE 0.7 mg/dL (0.6-1.0); GFR 88.6; POTASSIUM 4.1 mmol/L (3.5-5.1)
[2019-06-30 07:00] VITALS: BP 115/62
[2019-06-30] MEDS: ONDANSETRON ODT 4 MG TAB.RAPDIS. PO PRN (08:35)
[2019-06-30] MEDS: rifAXIMin 550 MG TABLET PO SCH ×2 (08:35→21:07)
[2019-06-30] MEDS: HYDROcodone/APAP 5/325MG 1 TAB TABLET PO PRN ×3 (08:35→21:08)
--- NOTE | 2019-06-30 08:37 | PDOC ---
Infectious Disease Note Subjective Subjective Some better but still some swelling but less pain and it has stopped draining No F/C/S/N/v/D/Rash and is tolerating the abx ROS ROS o/w neg Vital Sign Vital Signs Vital Signs Date Time Temp Pulse Resp B/P (MAP) Pulse Ox O2 Delivery O2 Flow Rate FiO2 06/30/19 07:00 97.8 71 18 115/62 (79) 99 Room Air 97.8 Physical Exam PHYSICAL EXAM CONSTITUTIONAL: She is cooperative. She is in no acute distress. Sitting up in bed and looks better HEENT: Pupils equal and reactive with normal conjunctivae. Oral cavity, pharynx is dry. She has dentures. NECK: Supple. Good range of motion, no JVD. LUNGS: Clear to auscultation. HEART: S1, S2. ABDOMEN: Soft, nontender, nondistended with positive bowel sounds. EXTREMITIES: Without clubbing, cyanosis. Her right foot has well healing scars. No signs of any erythema or warmth. Her tip of the nose has positive erythema. There is also edema associated with it is tender. Nasal area - Overall improved swelling however still some prominence on left ant nasal area. She has some decreased sinus tenderness, but no gross inflammation about her eyes. PSYCHIATRIC: Affect is appropriate. NEUROLOGIC: She is nonfocal. SKIM: no rash Labs Lab Laboratory Tests Test 06/30/19 03:10 Sodium Level 141 mmol/L (136-145) Potassium Level 4.1 mmol/L (3.5-5.1) Chloride Level 105 mmol/L (98-107) Carbon Dioxide Level 25 mmol/L (21-32) Anion Gap 11 (6-14) Blood Urea Nitrogen 14 mg/dL (7-20) Creatinine 0.7 mg/dL (0.6-1.0) Estimated GFR (Cockcroft-Gault) 88.6 Glucose Level 97 mg/dL (70-99) Calcium Level 9.0 mg/dL (8.5-10.1) Micro CT 06/28 Impression: 1. Left anterior nasal abscess with adjacent soft tissue swelling. 2. No significant sinus disease. Patent drainage pathways. Microbiology 06/28/19 Blood Culture - Preliminary, Resulted NO GROWTH AFTER 1 DAY Objective Assessment Nasal abscess H/o Splenectomy ITP IBS Plan Plan of Care Cont Dapto and Rocephin cults collected May need transfer if needs surgical I and D but some better this am D/w nursing HELEN CRANE MD Jun 30, 2019 08:37
[2019-06-30] MEDS: DICYCLOMINE HCL 10 MG CAPSULE PO PRN (08:41)
[2019-06-30] MEDS: cefTRIAXone IV Push 1 GM VIAL. IVP SCH (08:42)
[2019-06-30 11:00] VITALS: BP 99/52
--- NOTE | 2019-06-30 12:01 | NUR ---
SW following. Discussed with RN, pt on IV dapto and rocephin. RN advised no SW needs at this time. SW will continue to follow.
[2019-06-30] MEDS: DAPTOmycin (GENERIC) IVPB 320 MG in IV NORMAL SALINE 50ML 50 ML IV SCH (12:31)
--- NOTE | 2019-06-30 14:39 | PDOC ---
PROGRESS NOTES Subjective better but no longer draining, no new complaints, CT imaging noted, cultures pending Objective Afebrile General: A&O Heart: RRR Lungs: CTA Abd: soft and non tender Ext: no edema WBC: normal Creat: normal Vital Signs Vital Signs Date Time Temp Pulse Resp B/P (MAP) Pulse Ox O2 Delivery O2 Flow Rate FiO2 06/30/19 11:00 98.3 73 18 99/52 (68) 98 Room Air 98.3 I & O Intake and Output 06/30/19 07:00 Intake Total 1050 ml Balance 1050 ml Intake Oral 1050 ml # Voids 3 Assessment and Plan nasal abscess - continue IV meds, add topical bactroban, she failed outpatient treatment with Bactrim DS, culture pending, ID consulted, imaging of nose confirmed abscess but sinuses are unaffected, may still need ENT services and possible transfer ITP with asplenia - adequate platelets per lab IBS - just started Xifaxin last week tobacco use disorder Magno PENNY MD Jun 30, 2019 14:39
[2019-06-30 15:00] VITALS: BP 98/49
[2019-06-30] MEDS: MUPIROCIN 2 % NASAL OINTMENT 22GM TUBE. NS SCH ×2 (16:02→21:08)
[2019-06-30 19:00] VITALS: BP 114/72
[2019-06-30 23:00] VITALS: BP 104/62
[2019-07-01 03:00] VITALS: BP 102/64
[2019-07-01] MEDS: HYDROcodone/APAP 5/325MG 1 TAB TABLET PO PRN (03:50)
[2019-07-01] MEDS: DICYCLOMINE HCL 10 MG CAPSULE PO PRN (06:40)
[2019-07-01] MEDS: ONDANSETRON ODT 4 MG TAB.RAPDIS. PO PRN (06:40)
[2019-07-01 07:00] VITALS: BP 99/68
[2019-07-01] MEDS: MUPIROCIN 2 % NASAL OINTMENT 22GM TUBE. NS SCH ×2 (08:27→14:00)
[2019-07-01] MEDS: rifAXIMin 550 MG TABLET PO SCH (08:27)
[2019-07-01] MEDS: cefTRIAXone IV Push 1 GM VIAL. IVP SCH (08:28)
--- NOTE | 2019-07-01 09:18 | PDOC ---
Infectious Disease Note Subjective Subjective Some better with less swelling and less pain but still some swelling No F/C/S/N/v/D/Rash and is tolerating the abx Vital Sign Vital Signs Vital Signs Date Time Temp Pulse Resp B/P (MAP) Pulse Ox O2 Delivery O2 Flow Rate FiO2 07/01/19 07:00 97.9 73 17 99/68 (78) 98 Room Air 97.9 Physical Exam PHYSICAL EXAM CONSTITUTIONAL: She is cooperative. She is in no acute distress. ambulating in room. Looks much better HEENT: Pupils equal and reactive with normal conjunctivae. Oral cavity, pharynx is dry. She has dentures. NECK: Supple. Good range of motion, no JVD. LUNGS: Clear to auscultation. HEART: S1, S2. ABDOMEN: Soft, nontender, nondistended with positive bowel sounds. EXTREMITIES: Without clubbing, cyanosis. Her right foot has well healing scars. No signs of any erythema or warmth. Her tip of the nose has positive erythema. There is also edema associated with it is tender. Nasal area - Overall improved swelling however still some prominence on left ant nasal area but less? fluctuance. She has some decreased sinus tenderness, but no gross inflammation about her eyes. PSYCHIATRIC: Affect is appropriate. NEUROLOGIC: She is nonfocal. SKIM: no rash Labs Micro CT 06/28 Impression: 1. Left anterior nasal abscess with adjacent soft tissue swelling. 2. No significant sinus disease. Patent drainage pathways. Microbiology 06/28/19 Blood Culture - Preliminary, Resulted NO GROWTH AFTER 1 DAY Objective Assessment Nasal abscess - cults with GPC H/o Splenectomy ITP IBS Plan Plan of Care Can d/c Dapto and Rocephin after this Can d/c on zyvox to start 07/02 Rx in chart D/w Soc services to see if she can get outpat ENT appt today or tomorrow at [facility] D/w nursing HELEN CRANE MD Jul 01, 2019 09:18
[2019-07-01] MEDS: DAPTOmycin (GENERIC) IVPB 320 MG in IV NORMAL SALINE 50ML 50 ML IV SCH (10:56)
[2019-07-01 11:00] VITALS: BP 116/74
--- NOTE | 2019-07-01 13:01 | NUR ---
SW following for discharge planning. Discussed with RN. Dr. Martin recommending pt follow up outpatient ENT. RN notified. SW will continue to follow.
[2019-07-01] MEDS ORDERED: LINE600T12 PO (13:04)
[2019-07-01] MEDS ORDERED: MUPI22OI2 NS (13:04)
--- NOTE | 2019-07-01 13:30 | NUR ---
SW spoke with pt's pharmacy regarding linezolid rx coverage. They requested RN to call in prescription so they can run benefits. Discussed with RN and RN to call Pharmacy.
--- NOTE | 2019-07-01 15:04 | PDOC3 ---
Discharge Summary [facility] Date of Admission: Jun 28, 2019 Discharge Date: Jul 01, 2019 Admitting Diagnosis nasal abscess Final Diagnosis (1) nasal abscess Status: Acute (2) Hypotension Status: Acute (3) Thrombocytopenia Status: Acute CONSULTS ID - [place] Procedures none Brief Hospital Course Ms. Jaimes is a 49 old who presented with a painful abscess of her nose that failed outpatient treatment with oral Bactrim, admitted for IV antibiotics and cultures and pain control. She improved, CT imaging confirmed her abscess and it spontaneously drained some, cultures growing gram + cocci. She will be converted to po antibiotics and discharged home with ENT f/u which was not available as an inpatient. Her ITP was stable, she is asplenic, her other chronic medical issues were also stable Disposition home CONDITION AT DISCHARGE: Improved, Stable Diet regular Scheduled Linezolid (Zyvox), 600 MG PO BID Mupirocin (Mupirocin Ointment), 1 [place] NS TID Scheduled PRN Dicyclomine Hcl (Dicyclomine Hcl), 1 TAB PO PRN Q6HRS PRN for ABD PAIN, (Reported) Hydrocodone/Acetaminophen (Hydrocodone-Acetamin 5-325 mg), 1 EACH PO PRN BID PRN for PAIN, (Reported) Meclizine Hcl (Meclizine Hcl), 1 TAB PO PRN TID PRN for DIZZY , (Reported) Ondansetron Hcl (Zofran), 1 TAB PO PRN TID PRN for NAUSEA, (Reported) Discontinued Medications Info (No Known Medications Prior To Admisstion), 1 EACH MC none, (Reported) Rifaximin (Xifaxan), 550 MG PO BID, (Reported) Follow Up ENT within 24 hrs if possible, myself 1-2 weeks Magno PENNY MD Jul 01, 2019 15:04
--- NOTE | 2019-07-01 15:25 | NUR ---
Discharge Note: MIGUELITO BARBOSA [address] Discharge instructions and discharge home medications reviewed with Patient and a copy given. All questions have been answered and understanding verbalized. The following instructions and handouts were given: discharge instructions, new prescription, education and follow up recommendations. Discontinued lines and drains: Peripheral IV discontinued intact. Patient discharged to Home or Self Care with Friend via ambulated off unit by RN
== END 2019-07-01 15:27 | disposition home or self-care (01) | DRG 153 ==
LOC: ER 11:57 → 5 SOUTH 13:25
PROVIDERS: ADMIT Family Medicine; ATTEND Family Medicine
DX: J32.9 Chronic sinusitis, unspecified (principal); L03.211 Cellulitis of face; D69.3 Immune thrombocytopenic purpura; F17.210 Nicotine dependence, cigarettes, uncomplicated; K21.9 Gastro-esophageal reflux disease without esophagitis; M79.7 Fibromyalgia; I95.9 Hypotension, unspecified; M19.90 Unspecified osteoarthritis, unspecified site; Z80.0 Family history of malignant neoplasm of digestive organs; Z86.2 Personal history of diseases of the blood and blood-forming organs and certain disorders involving the immune mechanism; Z90.721 Acquired absence of ovaries, unilateral; Z90.81 Acquired absence of spleen; B95.61 Methicillin susceptible Staphylococcus aureus infection as the cause of diseases classified elsewhere; K58.9 Irritable bowel syndrome, unspecified
CPT/HCPCS: 36415; 70487; 71046; 80048; 80053; 83605; 85025; 85610; 87040; 87070; 87186; 96374; J0696; J0878; J7030; Q0162; Q9967; 99285-25; G0378

== ENCOUNTER → 2020-12-11 | Outpatient (CLI) | payer BC ==
[~2020-12-11] MED LIST changes: +DICY20TA3 PO; +HYDR-2759 PO; +IOHEXOL 300 MG/ML 100ML VIAL. IV ONE; +LINE600T12 PO; +MECL-75 PO; +MUPI22OI2 NS; +ONDA4TAB7 PO; +RIFA550T4 PO
--- NOTE | 2020-12-11 10:11 | RAD ---
EXAM: CTA HEAD DATE: 12/11/2020 8:37 AM INDICATION: ACUTE INTRACTABLE TENSION-TYPE HEADACHE. CHRONIC MAXILLARY SINUSITIS TECHNIQUE: 5 mm axial tomographic images were obtained through the head before contrast. CTA angiogra m was obtained after IV bolus administration of 75 cc of Omnipaque 300. Multiplanar reconstruction i mages to include MIP and 3-D reconstruction images are submitted. One or more of the following dose reduction techniques were utilized: Automated exposure control (AEC), Adjustment of mA and/or kV acc ording to patient size, Use of iterative reconstruction technique such as ASiR, CT scan done accordin g to ALARA and image gently/image wisely COMPARISON: None. FINDINGS: Noncontrast CT: The brain parenchyma is normal in attenuation. No intra- or extra-axial mass or fluid collection. No hyperdense intracranial hemorrhage. The ventricles are normal in size and configuration without midli ne shift. There is normal mancilla-white matter differentiation. The subarachnoid cisterns are patent. The visualized paranasal sinuses are well aerated. The mastoid air cells are clear. The visualized po rtions of the orbits are normal. No aggressive osseous lesion or fracture. CTA Head: The visualized distal internal carotid arteries, anterior and middle cerebral arteries are patent and normal caliber. The distal vertebral arteries, basilar artery, and posterior cerebral diane j carlos are patent and normal caliber. No aneurysm or arteriovenous malformation is seen. IMPRESSION: 1. No acute intracranial process by noncontrast head CT. 2. No aneurysm. No arterial stenosis or occlusion. Electronically signed by: Peewee Ruff MD (12/11/2020 10:09 AM) [id number]
== END ==
LOC: CT 08:28
PROVIDERS: ATTEND Family Medicine
DX: G44.201 Tension-type headache, unspecified, intractable (principal); J32.0 Chronic maxillary sinusitis
CPT/HCPCS: 70496; Q9967

== ENCOUNTER → 2021-01-09 | Outpatient (CLI) | payer BC ==
[~2021-01-09] MED LIST changes: -IOHEXOL 300 MG/ML 100ML VIAL. IV ONE
--- NOTE | 2021-01-09 14:35 | KCIC ---
2 view abdominal series Clinical indications: Left lower quadrant pain. Bloating. Nausea. Vomiting. Symptoms for 5 days. Weig ht loss. FINDINGS: Mild fecal retention is seen throughout the colon. No obstructive bowel pattern is evident. No free intraperitoneal air or air-fluid levels are seen. Calcified granuloma of the liver is seen w ithin the right upper quadrant. The osseous structures are intact. IMPRESSION: Mild fecal retention. Electronically signed by: Jose Alfredo Cohen MD (01/09/2021 2:32 PM) [id number]
== END ==
LOC: KCIC 12:54
PROVIDERS: ATTEND Family Medicine
DX: K59.00 Constipation, unspecified (principal); R11.2 Nausea with vomiting, unspecified
CPT/HCPCS: 74021

== ENCOUNTER → 2021-08-01 | Outpatient (CLI) | payer BC ==
[~2021-08-01] MED LIST changes: +DICY20TA PO; -DICY20TA3 PO
--- NOTE | 2021-08-01 10:22 | RAD ---
CLINICAL INDICATION: MIGUELITO BARBOSA, who is 51 years of age, presents for imaging evaluation of the palpable area of concern. The area of concern is described to be in the right breast COMPARISON: New baseline TECHNIQUE: Diagnostic views of the bilateral breasts were obtained, utilizing digital tomographic technique. Spo t compression cc view of the right breast also obtained. BREAST COMPOSITION: The breast tissue is heterogenously dense, which could obscure detection of small masses. MAMMOGRAM FINDINGS: There are no suspicious masses, microcalcifications, or architectural distortion to suggest malignanc y in either breast. The visualized axillae appear unremarkable. Given the palpable abnormality, further evaluation with ultrasound was performed. ULTRASOUND FINDINGS: Targeted ultrasound of the patient detected area of concern was performed. 12:30 position, 2 cm from the nipple: Parenchymal tissue of normal echotexture is present. IMPRESSION: 1. No mammographic evidence of malignancy in either breast. 2. Recommend clinical management of the patient's palpable region of concern in the right breast. RECOMMENDATION: In the absence of new clinical symptoms or change in physical exam, annual screening mammography is r ecommended BIRADS 2: BENIGN This study was interpreted with the benefit of Computerized Aided Detection (CAD). ?Your patient's mammogram demonstrates that she has dense breast tissue (breast density category C or D), which could hide abnormalities, and if she has other risk factors for breast cancer that have be en identified, she might benefit from supplemental screening tests that may be suggested by you as he r ordering physician. Dense breast tissue, in and of itself, is a relatively common condition. Theref ore, this information is not provided to cause undue concern, but rather to raise your awareness and to promote discussion with your patient regarding the presence of other risk factors, in addition to dense breast tissue. Your patient's mammography results will be sent to her. Patient information is entered into the reminder system with a target due date for the next screening mammogram. Mammography is the most sensitive method for finding small breast cancers, but it does not detect the m all and is not a substitute for careful clinical examination. A negative mammogram does not negate a clinically suspicious finding and should not result in delay in biopsying a clinically suspicious a bnormality. "Our facility is accredited by the [employer] Mammography Program." Electronically signed by: Sunday Davila MD (08/01/2021 10:19 AM) [place] [id number]
== END ==
LOC: MAMMO 09:23
PROVIDERS: ATTEND Family Medicine
DX: R92.8 Other abnormal and inconclusive findings on diagnostic imaging of breast (principal)
CPT/HCPCS: 76641; 77066; G0279; 77062